=== PATIENT | male | born 1950 | race Caucasian/White ===

== ENCOUNTER 2019-02-17 08:29 | Day surgery (SDC) | payer MEDICARE, OTHER ==
[~2019-02-17 08:29] MED LIST: Lactated Ringers 1,000 ML IV SCH; Sodium Chloride 0.9% 10 ML Syringe FLUSH PRN
[2019-02-17] MEDS ORDERED: Propofol 200 MG/20 ML SDV ONE ×2 (09:56→11:06)
[2019-02-17] MEDS ORDERED: fentaNYL 100 MCG/2 ML SDV ONE (09:56)
--- NOTE | 2019-02-17 14:36 | OR ---
PRE-OPERATIVE DIAGNOSIS: Screening colonoscopy. This is the patient's first colonoscopy. He denies any family history of colon cancer or colon polyps. POST-OPERATIVE DIAGNOSES: 1. Very tortuous and redundant colon. I was only able to pass the colonoscope to the hepatic flexure area despite multiple maneuvers and the patient repositioning. 2. Four tiny polyps removed all using cold forceps. a. A 2 mm polyp at 75 cm. b. A 2 mm polyp at 60 cm. c. A 2 mm polyp at 25 cm. d. A 2 mm polyp at 15 cm. 3. Moderate sigmoid diverticulosis. 4. Moderately severe hemorrhoids, internal greater than external. PROCEDURE: Colonoscopy although only able to advance the colonoscope to the hepatic flexure area given very tortuous and redundant colon. SURGEON: Isaias Felipe M.D. ANESTHESIA: Monitored anesthesia care. BOWEL PREP: Good. DESCRIPTION OF PROCEDURE: Colin is a 69-year-old male who was brought to the endoscopy suite after discussing risks and benefits of the procedure. Informed consent was obtained for conscious sedation and colonoscopy with or without biopsy and/or polypectomy. We also discussed possibility of missed lesions. Pre-procedure exam was unremarkable. IV, oxygen, and monitors were placed. The patient was placed in the left lateral decubitus position. Sedation was administered and a digital rectal exam was performed and revealed some hemorrhoids as well as some increased anal tone. Colonoscope was passed into the rectum and slowly advanced to the hepatic flexure area. The patient had a very tortuous and redundant colon and required multiple scope maneuvers and patient positioning changes to even make it that far. Colonoscope was slowly withdrawn. Mucosa closely observed in a direct circumferential manner. The transverse colon was remarkable for 2 mm polyp at 75 cm and 2 mm polyp at 60 cm, both removed with cold forceps. The descending colon was unremarkable. The sigmoid colon was remarkable for moderate diverticulosis as well as 2 mm polyps at 25 cm and 15 cm, both removed with cold forceps. Retroflexion was performed. Rectal mucosa was remarkable for [id number] internal hemorrhoids. Scope was removed. The patient tolerated the procedure well. The patient was monitored until that baseline status. Discharge instructions were reviewed and the patient was discharged in good condition. COMPLICATIONS: None. TOTAL TIME: 46 minutes. ESTIMATED BLOOD LOSS: About 1 mL. RECOMMENDATIONS/FOLLOW-UP: We will await results of path report to determine ideal followup. Could consider obtaining a barium enema to view the right colon versus doing early scope followup with Gastroenterology depending on how pathology report returns. I will have the patient hold his aspirin for about 3 days to limit any chance of bleeding. I would like to kindly thank Gautam Zavala for this referral. DMB: 02/17/2019 12:06:46 MODL: 02/17/2019 14:25:44 /[id number]
== END 2019-02-17 13:25 | disposition home or self-care (01) ==
LOC: VM.SDS 08:29
PROVIDERS: ATTEND Family Medicine
DX: Z12.11 Encounter for screening for malignant neoplasm of colon (principal); D12.5 Benign neoplasm of sigmoid colon; D12.3 Benign neoplasm of transverse colon; K63.5 Polyp of colon; K57.30 Diverticulosis of large intestine without perforation or abscess without bleeding; K64.8 Other hemorrhoids; I10 Essential (primary) hypertension; E78.5 Hyperlipidemia, unspecified; H91.93 Unspecified hearing loss, bilateral; Z79.82 Long term (current) use of aspirin; Z79.1 Long term (current) use of non-steroidal anti-inflammatories (NSAID); Z00.00 Encounter for general adult medical examination without abnormal findings
CPT/HCPCS: 45380; 88305; J2704; J3010; J7120

== ENCOUNTER 2020-11-26 16:12 | Inpatient (IN) | payer MEDICARE, OTHER ==
[2020-11-27] MEDS ORDERED: Docusate Sodium 100 MG Cap PO PRN (16:17)
[2020-11-27] MEDS ORDERED: Melatonin 3 MG Tab PO PRN (16:35)
[2020-11-27] MEDS: Gabapentin 100 MG Cap PO SCH ×2 (16:47→19:39)
--- NOTE | 2020-11-27 16:49 | PCM.HP.2 ---
H&P History of Present Illness - General Date of Service: 11/27/20 Admit Problem/Dx: Admission Diagnosis/Problem Admission Diagnosis/Problem Fracture of femur - History of Present Illness Initial Comments - Free Text/Narative: Choco is a 70-year-old male with past medical history of hypertension and hyperlipidemia who is being admitted to [facility] for swing bed cares for ongoing therapies. Is originally admitted as a trauma at [facility] on 11/05/2020. He had fallen off of a trailer and had 2000 pound he will roll on top of him. He sustained bilateral pubic rami fractures, a right inferior and lateral acet abular fracture, a comminuted left intertrochanteric fracture, left sacral alar fracture, rib fractures of #5 through 10 on the right as well as #5 through 11 on the left, as well as peritoneal hematoma within his pelvis. Operative repair included orthopedic surgery repairing the left femur on 10/06/2021. He was seen by occupational as well as physical therapy and eventually was evaluated by [facility] and accepted to them for ongoing intensive therapy. He was discharged from [facility] on 11/12/2020 and transferred to rehab. He was discharged from rehab today and transferred here for ongoing care as prior to anticipated discharge home. He did have a CT scan completed today prior to discharge which inserted some well healing rib fractures and minimal atelectasis in the right lung base with no acute process noted. COVID completed yesterday was negative. Prior to hospitalization patient was on lisinopril 10 mg daily for his hypertension, atorvastatin 20 mg daily for hyperlipidemia, Viagra prn for erectile dysfunction. Bilateral Chest Pain Score (Numeric/FACES): 3 Left Upper Leg Pain Score (Numeric/FACES): 3 - Related Data Allergies/Adverse Reactions: Allergies Allergy/AdvReac Type Severity Reaction Status Date / Time No Known Allergies Allergy Verified 11/27/20 07:39 Home Medications: Home Meds Lisinopril 1 tab PO DAILY 02/15/19 [History] Multivitamin with Minerals [Multiple Vitamin] 1 tab PO DAILY 02/15/19 [History] atorvaSTATin [Lipitor] 1 tab PO BEDTIME 02/15/19 [History] Acetaminophen 1,000 mg PO TID 11/27/20 [History] Docusate Sodium 1 cap PO BID 11/27/20 [History] Enoxaparin [Lovenox] 30 mg SUBCUT BID 11/27/20 [History] Gabapentin [Neurontin] 2 cap PO TID 11/27/20 [History] Lidocaine 5% [Lidoderm 5%] 2 patch TOP DAILY 11/27/20 [History] Melatonin 6 mg PO BEDTIME PRN 11/27/20 [History] Sennosides/Docusate Sodium [Senna-Docusate Sodium Tablet] 2 tab PO DAILY 11/27/20 [History] oxyCODONE 5 mg PO Q4H PRN 11/27/20 [History] polyethylene glycoL 3350 [MiraLAX] 1 packet PO DAILY 11/27/20 [History] tiZANidine [Zanaflex] 2 mg PO DAILY 11/27/20 [History] Past Medical History HEENT History: Reports: Other (See Below) Other HEENT History: hearing loss Cardiovascular History: Reports: High Cholesterol, Hypertension Respiratory History: Reports: None Gastrointestinal History: Reports: None Genitourinary History: Reports: None Musculoskeletal History: Reports: Fracture, Other (See Below) Other Musculoskeletal History: Multiple trauma, left hip fx, pelvic fx, right ankle fx, impaired gait and mobility, impaired ADLs, pain Neurological History: Reports: None Psychiatric History: Reports: None Endocrine/Metabolic History: Reports: None Hematologic History: Reports: None Oncologic (Cancer) History: Reports: None Dermatologic History: Reports: None - Past Surgical History Head Surgeries/Procedures: Reports: None HEENT Surgical History: Reports: None Cardiovascular Surgical History: Reports: None Respiratory Surgical History: Reports: None GI Surgical History: Reports: None Male Surgical History: Reports: None Endocrine Surgical History: Reports: None Neurological Surgical History: Reports: None Musculoskeletal Surgical History: Reports: ORIF Oncologic Surgical History: Reports: None Dermatological Surgical History: Reports: None, Skin Biopsy H&P Review of Systems - Review of Systems: Review Of Systems: See Below General: Reports: No Symptoms HEENT: Reports: No Symptoms Pulmonary: Reports: No Symptoms Cardiovascular: Reports: No Symptoms Gastrointestinal: Reports: No Symptoms Genitourinary: Reports: No Symptoms Musculoskeletal: Reports: Other (buttocks, left hip, and right ankle pain) Psychiatric: Reports: No Symptoms Neurological: Reports: No Symptoms Hematologic/Lymphatic: Reports: No Symptoms Immunologic: Reports: No Symptoms Exam - Exam Exam: See Below - Vital Signs Vital Signs: Last Vital Signs Temp 96.9 F 11/27/20 14:41 Pulse 87 11/27/20 14:41 Resp 16 11/27/20 14:41 BP 136/77 11/27/20 14:41 Pulse Ox 95 11/27/20 14:41 Weight: 168 lb 6.4 oz - Exam General: Alert, Oriented HEENT: Conjunctiva Clear, Mucosa Moist & [place] Neck: Supple, Trachea Midline Lungs: Normal Respiratory Effort, Rales (faint, right lower lung) Cardiovascular: Regular Rate, Regular Rhythm GI/Abdominal Exam: Normal Bowel Sounds, Soft, Non-Tender Extremities: Normal Inspection, Other (boot on right foot) Skin: Warm, Dry Neuro Extensive - Mental Status: Alert, Oriented x3, Normal Mood/Affect, Memory Intact Psychiatric: Alert, Normal Affect, Normal Mood Sepsis Event Note - Evaluation Sepsis Screening Result: No Definite Risk - Focused Exam Vital Signs: Vital Signs Temp Pulse Resp BP Pulse Ox 11/27/20 14:41 96.9 F 87 16 136/77 95 - Problem List (1) Closed right hip fracture SNOMED Code(s): 544423350 ICD Code: S72.001A - FRACTURE OF UNSP PART OF NECK OF RIGHT FEMUR, INIT Status: Acute Current Visit: Yes (2) Pubic ramus fracture SNOMED Code(s): 29298246 ICD Code: S32.599A - OTH FRACTURE OF UNSP PUBIS, INIT ENCNTR FOR CLOSED FRACTURE Status: Acute Current Visit: Yes (3) Physical deconditioning SNOMED Code(s): 83191588082870 ICD Code: R53.81 - OTHER MALAISE Status: Acute Current Visit: Yes (4) HTN (hypertension) SNOMED Code(s): 29214856 ICD Code: I10 - ESSENTIAL (PRIMARY) HYPERTENSION Status: Acute Current Visit: Yes (5) HLD (hyperlipidemia) SNOMED Code(s): 42605053 ICD Code: E78.5 - HYPERLIPIDEMIA, UNSPECIFIED Status: Acute Current Visit: Yes Problem List Initiated/Reviewed/Updated: Yes Orders Last 24hrs: Active Orders 24 hr Category Date Time Status Admission Status [Patient Status] [ADT] Routine ADT 11/27/20 11:23 Active Incentive Spirometry [RT Incentive Spirometry] [RC] Care 11/27/20 16:39 Ordered Q8HR Oxygen Therapy [RC] PRN Care 11/27/20 16:07 Active Up With Assistance [RC] ASDIRECTED Care 11/27/20 16:07 Active VTE/DVT Education [RC] PER UNIT ROUTINE Care 11/27/20 16:07 Active Vital Signs [RC] Q8H Care 11/27/20 16:07 Active OT Evaluation and Treatment [CONS] Routine Cons 11/27/20 16:39 Ordered PT Evaluation and Treatment [CONS] Routine Cons 11/27/20 16:39 Ordered Regular Diet [DIET] Diet 11/27/20 Dinner Active CBC W/O DIFF,HEMOGRAM [HEME] Q3D Lab 11/28/20 07:00 Ordered CBC W/O DIFF,HEMOGRAM [HEME] Q3D Lab 12/01/20 07:00 Ordered CBC W/O DIFF,HEMOGRAM [HEME] Q3D Lab 12/04/20 07:00 Ordered CBC W/O DIFF,HEMOGRAM [HEME] Q3D Lab 12/07/20 07:00 Ordered CBC W/O DIFF,HEMOGRAM [HEME] Q3D Lab 12/10/20 07:00 Ordered CBC W/O DIFF,HEMOGRAM [HEME] Q3D Lab 12/13/20 07:00 Ordered CBC W/O DIFF,HEMOGRAM [HEME] Q3D Lab 12/16/20 07:00 Ordered Acetaminophen [Tylenol Extra Strength] Med 11/27/20 20:00 Ordered 1,000 mg PO TID Docusate Sodium [Colace] Med 11/27/20 20:00 Ordered 1 cap PO BID Enoxaparin [Lovenox] Med 11/27/20 16:15 Pending 30 mg SUBCUT Q12H Gabapentin [Neurontin] Med 11/27/20 16:30 Active 100 mg PO TID Lidocaine 5% Med 11/28/20 08:00 Ordered 2 patch TOP DAILY Melatonin Med 11/27/20 16:35 Ordered 6 mg PO BEDTIME PRN Multivitamins w-Iron/Ca/FA/Min [Thera M Plus] Med 11/28/20 08:00 Active 1 tab PO DAILY atorvaSTATin [Lipitor] Med 11/27/20 20:00 Active 20 mg PO BEDTIME lisinopriL [Prinivil] Med 11/28/20 08:00 Active 10 mg PO DAILY oxyCODONE Med 11/27/20 16:18 Active 5 mg PO Q6H PRN polyethylene glycoL 3350 [MiraLAX] Med 11/28/20 08:00 Ordered 1 packet PO DAILY tiZANidine [Zanaflex] Med 11/27/20 16:16 Active 2 mg PO Q6H PRN Resuscitation Status Routine Resus Stat 11/27/20 16:07 Ordered Medication Orders Acetaminophen (Tylenol Extra Strength) 1,000 mg PO TID [facility] Atorvastatin Calcium (Lipitor) 20 mg PO BEDTIME [facility] Docusate Sodium (Colace) 100 mg PO BID [facility] Enoxaparin Sodium (Lovenox) 30 mg SUBCUT Q12H [facility] Stop: 12/04/20 08:01 Gabapentin (Neurontin) 100 mg PO TID [facility] Lisinopril (Prinivil) 10 mg PO DAILY [facility] Melatonin (Melatonin) 6 mg PO BEDTIME PRN PRN Reason: Insomnia Multivitamins/Minerals (Thera M Plus) 1 tab PO DAILY [facility] Non-Formulary Medication (Lidocaine 5%) 2 patch TOP DAILY [facility] Oxycodone HCl (Oxycodone) 5 mg PO Q6H PRN PRN Reason: Pain Polyethylene Glycol (Miralax) 17 gm PO DAILY [facility] Tizanidine HCl (Zanaflex) 2 mg PO Q6H PRN PRN Reason: Muscle Spasm Assessment/Plan Comment:: Trauma: s/p hip fracture, bilateral pubic ramus fractures, inferior and lateral acetabular fractures, sacral alar fracture, rib fractures bilaterally Right ankle pain, ? fracture -Patient has been discharged from intensive inpatient rehab -CT scan (11/27) demonstrating some RLL atelectasis, some RLL rales today Plan: -PT/OT for continued rehab -Pain control: gabapentin 100mg TID, Tylenol 1000mg TID, oxycodone 5mg q6hr prn for mod-sev pain, zanaflex q6hr prn -DVT: continue lovenox 30mg SQ BID through 12/04/20 (post-op per ortho) -Incentive spirometry TID -Will plan to repeat xray right ankle 6 weeks from date of injury (December 17) Chronic: HTN- continue home Lisinopril HLD- continue home atorvastatin Diet: Regular DVT: lovenox, as above CODE: FULL Disposition: Patient is admitted swing bed for ongoing therapies through physical and occupational therapy prior to his expected return home. - Mortality Measure Prognosis:: Good
[2020-11-27] MEDS ORDERED: Acetaminophen 325 MG Tab PO SCH (18:00)
[2020-11-27] MEDS: oxyCODONE 5 MG Tab PO PRN (18:51)
[2020-11-27] MEDS: Enoxaparin 30 MG/0.3 ML Syringe SUBCUT SCH (19:38)
[2020-11-27] MEDS: atorvaSTATin 10 MG Tab PO SCH (19:39)
[2020-11-27] MEDS: Docusate Sodium 100 MG Cap PO SCH (19:39)
[2020-11-27] MEDS: Acetaminophen 500 MG Tab PO SCH (19:42)
[2020-11-27] MEDS: REMOVE LIDOCAINE TRDERM SCH (19:45)
[2020-11-27] MEDS ORDERED: Enoxaparin 100 MG/1 ML Syringe SUBCUT SCH (20:00)
[2020-11-28] MEDS: oxyCODONE 5 MG Tab PO PRN ×3 (01:13→12:02)
[2020-11-28] MEDS: Docusate Sodium 100 MG Cap PO SCH ×2 (07:43→19:41)
[2020-11-28] MEDS: Multivitamins with Iron/Calcium/Folic Acid/Minerals Tab PO SCH (07:44)
[2020-11-28] MEDS: Acetaminophen 500 MG Tab PO SCH ×3 (07:44→19:41)
[2020-11-28] MEDS: Gabapentin 100 MG Cap PO SCH ×3 (07:45→19:41)
[2020-11-28] MEDS: Polyethylene Glycol 3350 Powder 17 GM Packet PO SCH (07:45)
[2020-11-28] MEDS: Lisinopril 10 MG Tab PO SCH (07:45)
[2020-11-28] MEDS: Enoxaparin 30 MG/0.3 ML Syringe SUBCUT SCH ×2 (07:46→19:43)
[2020-11-28] MEDS: Lidocaine 4% 1 each Patch TOP SCH (07:52)
[2020-11-28] MEDS ORDERED: TIZANIDINE 2 MG PO SCH (08:00)
[2020-11-28] MEDS ORDERED: Polyethylene Glycol 3350 Powder 17 GM Packet PO SCH (08:00)
[2020-11-28] MEDS ORDERED: Aspirin 81 MG Tab.Chew PO SCH (08:00)
[2020-11-28] MEDS: atorvaSTATin 10 MG Tab PO SCH (19:41)
[2020-11-28] MEDS: REMOVE LIDOCAINE TRDERM SCH (19:48)
[2020-11-29] MEDS: oxyCODONE 5 MG Tab PO PRN ×2 (02:31→10:28)
[2020-11-29] MEDS: Acetaminophen 500 MG Tab PO SCH ×3 (07:41→19:47)
[2020-11-29] MEDS: Gabapentin 100 MG Cap PO SCH ×3 (07:41→19:46)
[2020-11-29] MEDS: Polyethylene Glycol 3350 Powder 17 GM Packet PO SCH (07:41)
[2020-11-29] MEDS: Docusate Sodium 100 MG Cap PO SCH ×2 (07:42→19:46)
[2020-11-29] MEDS: Multivitamins with Iron/Calcium/Folic Acid/Minerals Tab PO SCH (07:42)
[2020-11-29] MEDS: Lisinopril 10 MG Tab PO SCH (07:42)
[2020-11-29] MEDS: Enoxaparin 30 MG/0.3 ML Syringe SUBCUT SCH ×2 (07:42→19:47)
[2020-11-29] MEDS: Lidocaine 4% 1 each Patch TOP SCH (07:43)
[2020-11-29] MEDS: atorvaSTATin 10 MG Tab PO SCH (19:46)
[2020-11-29] MEDS: REMOVE LIDOCAINE TRDERM SCH (19:49)
[2020-11-30] MEDS: oxyCODONE 5 MG Tab PO PRN (02:08)
[2020-11-30] MEDS ORDERED: Polyethylene Glycol 3350 Powder 17 GM Packet PO PRN (02:45)
[2020-11-30] MEDS: Enoxaparin 30 MG/0.3 ML Syringe SUBCUT SCH ×2 (08:46→19:52)
[2020-11-30] MEDS: Lidocaine 4% 1 each Patch TOP SCH (08:46)
[2020-11-30] MEDS: Acetaminophen 500 MG Tab PO SCH ×3 (08:47→19:51)
[2020-11-30] MEDS: Docusate Sodium 100 MG Cap PO SCH ×2 (08:48→19:51)
[2020-11-30] MEDS: Gabapentin 100 MG Cap PO SCH ×3 (08:48→19:51)
[2020-11-30] MEDS: Multivitamins with Iron/Calcium/Folic Acid/Minerals Tab PO SCH (08:48)
[2020-11-30] MEDS: Lisinopril 10 MG Tab PO SCH (08:48)
[2020-11-30] MEDS: atorvaSTATin 10 MG Tab PO SCH (19:50)
[2020-11-30] MEDS: REMOVE LIDOCAINE TRDERM SCH (19:52)
[2020-12-01] MEDS: oxyCODONE 5 MG Tab PO PRN (02:58)
[2020-12-01] MEDS: Lidocaine 4% 1 each Patch TOP SCH (08:46)
[2020-12-01] MEDS: Gabapentin 100 MG Cap PO SCH ×3 (08:47→19:39)
[2020-12-01] MEDS: Acetaminophen 500 MG Tab PO SCH ×3 (08:47→19:39)
[2020-12-01] MEDS: Docusate Sodium 100 MG Cap PO SCH ×2 (08:47→19:39)
[2020-12-01] MEDS: Multivitamins with Iron/Calcium/Folic Acid/Minerals Tab PO SCH (08:47)
[2020-12-01] MEDS: Enoxaparin 30 MG/0.3 ML Syringe SUBCUT SCH ×2 (08:47→19:39)
[2020-12-01] MEDS: Lisinopril 10 MG Tab PO SCH (08:48)
[2020-12-01] MEDS: atorvaSTATin 10 MG Tab PO SCH (19:39)
[2020-12-01] MEDS: REMOVE LIDOCAINE TRDERM SCH (19:40)
[2020-12-02] MEDS: oxyCODONE 5 MG Tab PO PRN (03:11)
[2020-12-02] MEDS: Lidocaine 4% 1 each Patch TOP SCH (08:30)
[2020-12-02] MEDS: Docusate Sodium 100 MG Cap PO SCH ×2 (08:31→19:53)
[2020-12-02] MEDS: Lisinopril 10 MG Tab PO SCH (08:31)
[2020-12-02] MEDS: Gabapentin 100 MG Cap PO SCH ×3 (08:31→19:54)
[2020-12-02] MEDS: Enoxaparin 30 MG/0.3 ML Syringe SUBCUT SCH ×2 (08:31→19:53)
[2020-12-02] MEDS: Acetaminophen 500 MG Tab PO SCH ×3 (08:33→19:54)
[2020-12-02] MEDS: Multivitamins with Iron/Calcium/Folic Acid/Minerals Tab PO SCH (08:33)
[2020-12-02] MEDS: atorvaSTATin 10 MG Tab PO SCH (19:54)
[2020-12-02] MEDS: REMOVE LIDOCAINE TRDERM SCH (19:55)
[2020-12-03] MEDS: Docusate Sodium 100 MG Cap PO SCH ×2 (09:03→20:19)
[2020-12-03] MEDS: Enoxaparin 30 MG/0.3 ML Syringe SUBCUT SCH ×2 (09:03→20:21)
[2020-12-03] MEDS: Acetaminophen 500 MG Tab PO SCH ×3 (09:04→20:19)
[2020-12-03] MEDS: oxyCODONE 5 MG Tab PO PRN (09:04)
[2020-12-03] MEDS: Multivitamins with Iron/Calcium/Folic Acid/Minerals Tab PO SCH (09:05)
[2020-12-03] MEDS: Lisinopril 10 MG Tab PO SCH (09:05)
[2020-12-03] MEDS: Gabapentin 100 MG Cap PO SCH ×3 (09:05→20:19)
[2020-12-03] MEDS: Lidocaine 4% 1 each Patch TOP SCH (09:06)
[2020-12-03] MEDS: atorvaSTATin 10 MG Tab PO SCH (20:18)
[2020-12-03] MEDS: REMOVE LIDOCAINE TRDERM SCH (20:21)
[2020-12-04] MEDS: Enoxaparin 30 MG/0.3 ML Syringe SUBCUT SCH (08:11)
[2020-12-04] MEDS: Docusate Sodium 100 MG Cap PO SCH ×2 (08:11→20:11)
[2020-12-04] MEDS: Lidocaine 4% 1 each Patch TOP SCH (08:11)
[2020-12-04] MEDS: Lisinopril 10 MG Tab PO SCH (08:11)
[2020-12-04] MEDS: Multivitamins with Iron/Calcium/Folic Acid/Minerals Tab PO SCH (08:11)
[2020-12-04] MEDS: oxyCODONE 5 MG Tab PO PRN (08:12)
[2020-12-04] MEDS: Gabapentin 100 MG Cap PO SCH ×3 (08:12→20:10)
[2020-12-04] MEDS: Acetaminophen 500 MG Tab PO SCH ×3 (08:12→20:10)
[2020-12-04] MEDS: atorvaSTATin 10 MG Tab PO SCH (20:11)
[2020-12-04] MEDS: REMOVE LIDOCAINE TRDERM SCH (20:15)
[2020-12-05] MEDS: Acetaminophen 500 MG Tab PO SCH ×3 (08:02→19:41)
[2020-12-05] MEDS: Gabapentin 100 MG Cap PO SCH ×3 (08:02→19:42)
[2020-12-05] MEDS: Lidocaine 4% 1 each Patch TOP SCH (08:02)
[2020-12-05] MEDS: Lisinopril 10 MG Tab PO SCH (08:02)
[2020-12-05] MEDS: oxyCODONE 5 MG Tab PO PRN (08:03)
[2020-12-05] MEDS: Docusate Sodium 100 MG Cap PO SCH ×2 (08:03→19:42)
[2020-12-05] MEDS: Multivitamins with Iron/Calcium/Folic Acid/Minerals Tab PO SCH (08:03)
[2020-12-05] MEDS: atorvaSTATin 10 MG Tab PO SCH (19:42)
[2020-12-05] MEDS: REMOVE LIDOCAINE TRDERM SCH (19:43)
[2020-12-06] MEDS: Docusate Sodium 100 MG Cap PO SCH ×2 (08:22→19:49)
[2020-12-06] MEDS: Multivitamins with Iron/Calcium/Folic Acid/Minerals Tab PO SCH (08:22)
[2020-12-06] MEDS: Acetaminophen 500 MG Tab PO SCH ×3 (08:22→19:49)
[2020-12-06] MEDS: Gabapentin 100 MG Cap PO SCH ×3 (08:22→19:49)
[2020-12-06] MEDS: Lidocaine 4% 1 each Patch TOP SCH (08:22)
[2020-12-06] MEDS: Lisinopril 10 MG Tab PO SCH (08:23)
[2020-12-06] MEDS: atorvaSTATin 10 MG Tab PO SCH (19:49)
[2020-12-06] MEDS: REMOVE LIDOCAINE TRDERM SCH (19:50)
[2020-12-07] MEDS: Lidocaine 4% 1 each Patch TOP SCH (07:31)
[2020-12-07] MEDS: Multivitamins with Iron/Calcium/Folic Acid/Minerals Tab PO SCH (07:32)
[2020-12-07] MEDS: Lisinopril 10 MG Tab PO SCH (07:32)
[2020-12-07] MEDS: Gabapentin 100 MG Cap PO SCH ×3 (07:32→19:23)
[2020-12-07] MEDS: Acetaminophen 500 MG Tab PO SCH ×3 (07:32→19:24)
[2020-12-07] MEDS: Docusate Sodium 100 MG Cap PO SCH ×2 (07:32→19:23)
[2020-12-07] MEDS: atorvaSTATin 10 MG Tab PO SCH (19:23)
[2020-12-07] MEDS: REMOVE LIDOCAINE TRDERM SCH (19:24)
[2020-12-08] MEDS: Docusate Sodium 100 MG Cap PO SCH ×2 (07:56→19:45)
[2020-12-08] MEDS: Acetaminophen 500 MG Tab PO SCH ×3 (07:56→19:45)
[2020-12-08] MEDS: Multivitamins with Iron/Calcium/Folic Acid/Minerals Tab PO SCH (07:56)
[2020-12-08] MEDS: Gabapentin 100 MG Cap PO SCH ×3 (07:56→19:45)
[2020-12-08] MEDS: Lisinopril 10 MG Tab PO SCH (07:56)
[2020-12-08] MEDS: Lidocaine 4% 1 each Patch TOP SCH (07:56)
[2020-12-08] MEDS: atorvaSTATin 10 MG Tab PO SCH (19:45)
[2020-12-08] MEDS: REMOVE LIDOCAINE TRDERM SCH (22:11)
[2020-12-09] MEDS: Lisinopril 10 MG Tab PO SCH (08:01)
[2020-12-09] MEDS: Multivitamins with Iron/Calcium/Folic Acid/Minerals Tab PO SCH (08:01)
[2020-12-09] MEDS: Gabapentin 100 MG Cap PO SCH ×3 (08:01→19:37)
[2020-12-09] MEDS: Lidocaine 4% 1 each Patch TOP SCH (08:01)
[2020-12-09] MEDS: Docusate Sodium 100 MG Cap PO SCH ×2 (08:01→19:37)
[2020-12-09] MEDS: Acetaminophen 500 MG Tab PO SCH ×3 (08:01→19:37)
[2020-12-09] MEDS: atorvaSTATin 10 MG Tab PO SCH (19:37)
[2020-12-09] MEDS: REMOVE LIDOCAINE TRDERM SCH (19:39)
[2020-12-10] MEDS: Lidocaine 4% 1 each Patch TOP SCH (08:31)
[2020-12-10] MEDS: Multivitamins with Iron/Calcium/Folic Acid/Minerals Tab PO SCH (08:31)
[2020-12-10] MEDS: Lisinopril 10 MG Tab PO SCH (08:31)
[2020-12-10] MEDS: Acetaminophen 500 MG Tab PO SCH ×3 (08:31→19:36)
[2020-12-10] MEDS: Docusate Sodium 100 MG Cap PO SCH ×2 (08:32→19:37)
[2020-12-10] MEDS: Gabapentin 100 MG Cap PO SCH ×3 (08:32→19:37)
[2020-12-10 09:33] LABS: CHLORIDE,CL 102 mmol/L (98-107); SODIUM,NA 139 mmol/L (136-145)
[2020-12-10 09:35] LABS: ANION GAP 13.3 mmol/L (5-15)
[2020-12-10] MEDS: REMOVE LIDOCAINE TRDERM SCH (19:37)
[2020-12-10] MEDS: atorvaSTATin 10 MG Tab PO SCH (19:37)
[2020-12-10] MEDS: tiZANidine 4 MG Tab PO PRN (19:39)
[2020-12-11] MEDS: Lidocaine 4% 1 each Patch TOP SCH (08:06)
[2020-12-11] MEDS: Gabapentin 100 MG Cap PO SCH ×3 (08:07→19:17)
[2020-12-11] MEDS: Lisinopril 10 MG Tab PO SCH (08:07)
[2020-12-11] MEDS: Docusate Sodium 100 MG Cap PO SCH ×2 (08:07→19:17)
[2020-12-11] MEDS: Acetaminophen 500 MG Tab PO SCH ×3 (08:07→19:17)
[2020-12-11] MEDS: Multivitamins with Iron/Calcium/Folic Acid/Minerals Tab PO SCH (08:07)
[2020-12-11] MEDS: atorvaSTATin 10 MG Tab PO SCH (19:17)
[2020-12-11] MEDS: tiZANidine 4 MG Tab PO PRN (19:18)
[2020-12-11] MEDS: REMOVE LIDOCAINE TRDERM SCH (19:23)
[2020-12-12] MEDS: oxyCODONE 5 MG Tab PO PRN (03:12)
[2020-12-12] MEDS: Docusate Sodium 100 MG Cap PO SCH ×2 (08:08→19:34)
[2020-12-12] MEDS: Acetaminophen 500 MG Tab PO SCH ×3 (08:08→19:35)
[2020-12-12] MEDS: Lidocaine 4% 1 each Patch TOP SCH (08:08)
[2020-12-12] MEDS: Gabapentin 100 MG Cap PO SCH ×3 (08:08→19:34)
[2020-12-12] MEDS: Multivitamins with Iron/Calcium/Folic Acid/Minerals Tab PO SCH (08:08)
[2020-12-12] MEDS: Lisinopril 10 MG Tab PO SCH (08:09)
[2020-12-12] MEDS: tiZANidine 4 MG Tab PO PRN (19:34)
[2020-12-12] MEDS: atorvaSTATin 10 MG Tab PO SCH (19:34)
[2020-12-12] MEDS: REMOVE LIDOCAINE TRDERM SCH (19:35)
[2020-12-13] MEDS: Lidocaine 4% 1 each Patch TOP SCH (08:32)
[2020-12-13] MEDS: Acetaminophen 500 MG Tab PO SCH ×3 (08:33→19:44)
[2020-12-13] MEDS: Multivitamins with Iron/Calcium/Folic Acid/Minerals Tab PO SCH (08:33)
[2020-12-13] MEDS: Gabapentin 100 MG Cap PO SCH ×3 (08:33→19:45)
[2020-12-13] MEDS: Lisinopril 10 MG Tab PO SCH (08:33)
[2020-12-13] MEDS: Docusate Sodium 100 MG Cap PO SCH ×2 (08:33→19:45)
[2020-12-13] MEDS: atorvaSTATin 10 MG Tab PO SCH (19:45)
[2020-12-13] MEDS: REMOVE LIDOCAINE TRDERM SCH (21:38)
[2020-12-14 06:06] VITALS: BP 133/72; PULSE 62
[2020-12-14] MEDS: Multivitamins with Iron/Calcium/Folic Acid/Minerals Tab PO SCH (08:18)
[2020-12-14] MEDS: Acetaminophen 500 MG Tab PO SCH ×2 (08:18→12:56)
[2020-12-14] MEDS: Docusate Sodium 100 MG Cap PO SCH (08:18)
[2020-12-14] MEDS: Gabapentin 100 MG Cap PO SCH ×2 (08:18→12:56)
[2020-12-14] MEDS: Lisinopril 10 MG Tab PO SCH (08:18)
[2020-12-14] MEDS: Lidocaine 4% 1 each Patch TOP SCH (08:23)
--- NOTE | 2020-12-14 08:47 | PCM.DCSUM1 ---
Discharge Summary - Hospital Course Free Text/Narrative:: Colin Garcia is a 70-year-old male with past medical history of hypertension and hyperlipidemia who was originally admitted as a trauma at on 11/05/2020. He had fallen off of a trailer and had 2000 pound haybale roll on top of him. He sustained bilateral pubic rami fractures, a right inferior and lateral acetabular fracture, a comminuted left intertrochanteric fracture, left sacral alar fracture, rib fractures of #5 through 10 on the right as well as #5 through 11 on the left, as well as peritoneal hematoma within his pelvis. Operative repair included orthopedic surgery repairing the left femur on 10/06/2021. He was seen by occupational as well as physical therapy and eventually was evaluated by rehab and accepted to them for ongoing intensive therapy. He was discharged from [facility] on 11/12/2020 and transferred to rehab. He was discharged from rehab on 11/27/20 for swing bed for ongoing cares at [facility]. He has progressed well through his therapies and is deemed ready for discharge home per PT and OT services. His hospital course has otherwise been uncomplicated. He has been able to self-wean down on the pain control medications; using these on average 1 time every 2-3 days (mostly at night). He will will be discharged on his previous home medications. We will give him a handful of Zanaflex and [place]. We will decreased his Neurontin to 100mg BID (From 100mg TID in the hospital). He will be discharged with [facility] services for continued PT/OT. He will follow-up with his PCP in 1-2 weeks time for a hospital discharge follow-up. - Discharge Data Discharge Date: 12/14/20 Discharge Disposition: Home, W Home Health Agency 06 Condition: Good - Referral to Home Health Date of Face to Face Encounter: 12/14/20 Reason for Homebound Status: Use of assistive device, requires the aid of others to leave the home Primary Care Physician: Gautam Zavala PA-C Skilled Need: PT, OT - Discharge Diagnosis/Problem(s) (1) Closed right hip fracture SNOMED Code(s): 435418179 ICD Code: S72.001A - FRACTURE OF UNSP PART OF NECK OF RIGHT FEMUR, INIT Status: Acute Current Visit: Yes (2) Pubic ramus fracture SNOMED Code(s): 72331921 ICD Code: S32.599A - OTH FRACTURE OF UNSP PUBIS, INIT ENCNTR FOR CLOSED FRACTURE Status: Acute Current Visit: Yes (3) Physical deconditioning SNOMED Code(s): 38859357263131 ICD Code: R53.81 - OTHER MALAISE Status: Acute Current Visit: Yes (4) HTN (hypertension) SNOMED Code(s): 96364789 ICD Code: I10 - ESSENTIAL (PRIMARY) HYPERTENSION Status: Acute Current Visit: Yes (5) HLD (hyperlipidemia) SNOMED Code(s): 04187295 ICD Code: E78.5 - HYPERLIPIDEMIA, UNSPECIFIED Status: Acute Current Visit: Yes - Patient Summary/Data Consults: Consultations 11/27/20 16:39 OT Evaluation and Treatment [CONS] Routine PT Evaluation and Treatment [CONS] Routine - Patient Instructions Diet: Usual Diet as Tolerated Activity: As Tolerated Driving: Do Not Drive - Discharge Plan *PRESCRIPTION DRUG MONITORING PROGRAM REVIEWED*: Not Applicable *COPY OF PRESCRIPTION DRUG MONITORING REPORT IN PATIENT MAHESH: Not Applicable Home Medications: Home Meds Lisinopril 10 mg PO DAILY 02/15/19 [History] Multivitamin with Minerals [Multiple Vitamin] 1 tab PO DAILY@1900 02/15/19 [History] atorvaSTATin [Lipitor] 20 mg PO BEDTIME 02/15/19 [History] Acetaminophen 1,000 mg PO TID 11/27/20 [History] Docusate Sodium 100 mg PO BID 11/27/20 [History] Lidocaine 5% [Lidoderm 5%] 2 patch TOP DAILY 11/27/20 [History] Melatonin 6 mg PO BEDTIME PRN 11/27/20 [History] polyethylene glycoL 3350 [MiraLAX] 17 gram PO DAILY 11/27/20 [History] tiZANidine [Zanaflex] 2 mg PO DAILY 11/27/20 [History] Gabapentin [Neurontin] 100 mg PO BID cap 12/14/20 [Rx] Patient Handouts: Gabapentin capsules or tablets, Oxycodone tablets or capsules - Discharge Summary/Plan Comment DC Time >30 min.: No Discharge Summary/Plan Comment: Patient discharging home with services for PT/OT Should have follow-up with PCP in 1-2 weeks Resume all home meds: lisinopril, statin, MV New meds: gabapentin 100mg BID, lidocaine patch as needed/daily, prn flexeril and norco (Rx sent through [facility]) Face to Face Documentation Encounter Date of Encounter: 12/14/20 Patients Name: Colin Garcia Date of : [birth year] I certify that Colin is under my care and that I, or a nurse practitioner or physicians secretary administrative assistant, had a face to face encounter that meets the physician wiwy-uh-[id number] requirements on . (This date must match the discharge summary progress note/clinic visit documentation supporting this information.) The encounter with the patient was in whole or in part for the following medical condition, which is the primary reason for home health care: Physical therapy for strengthening, balance, and gait training, as well as OT for ADLs. My clinical findings support the need for the services because of inability to safely get to an outpatient facility for therapy due to fall risk, lack of muscle coordination and tone, balance issues, and weakness. Further, I certify that my clinical findings support that this patient is homebound (i.e. absences from home require considerable and taxing effort, or are for medical reasons, or for hindu services, or infrequent or of short duration when for other reasons) because the patient is unable to safely ambulate distances less than 20 feet, patient requires standby assist due to loss of balance, and patient requires frequent rest periods due to weakness and loss of endurance, patient requires use of assistive device and/or use of grant/furniture to ambulate (high fall risk) and patient requires assistance of another person to leave the home. Certification: For Home Health Services I certify that Colin meets the homebound requirements for the payer source and has a need for intermittent usp, physician, and/or speech or occupational therapy services in the home for the diagnosis currently outlined in the initial plan of care. These services will continue to be monitored by Gautam JONES. This physician will periodically review and update the plan of care as required. My signature indicates that this supplemental documentation has been incorporated in the patients medical record. Lou Menezes MD - Patient Data Vitals - Most Recent: Last Vital Signs Temp 98.4 F 12/14/20 06:00 Pulse 62 12/14/20 06:00 Resp 18 12/14/20 06:00 BP 133/72 12/14/20 08:18 Pulse Ox 95 12/14/20 06:00 Weight - Most Recent: 168 lb 6.4 oz I&O - Last 24 hours: Intake & Output 12/13/20 12/14/20 12/14/20 22:59 06:59 14:59 Intake Total 240 400 Output Total 1500 Balance 240 -1100 Med Orders - Current: Current Medications Acetaminophen (Tylenol Extra Strength) 1,000 mg PO TID [facility] Last Admin: 12/14/20 08:18 Dose: 1,000 mg Documented by: Atorvastatin Calcium (Lipitor) 20 mg PO BEDTIME [facility] Last Admin: 12/13/20 19:45 Dose: 20 mg Documented by: Docusate Sodium (Colace) 100 mg PO BID [facility] Last Admin: 12/14/20 08:18 Dose: 100 mg Documented by: Gabapentin (Neurontin) 100 mg PO TID [facility] Last Admin: 12/14/20 08:18 Dose: 100 mg Documented by: Lidocaine (Aspercreme 4%) 2 each TOP DAILY [facility] Last Admin: 12/14/20 08:23 Dose: 2 each Documented by: Lisinopril (Prinivil) 10 mg PO DAILY [facility] Last Admin: 12/14/20 08:18 Dose: 10 mg Documented by: Melatonin (Melatonin) 6 mg PO BEDTIME PRN PRN Reason: Insomnia Miscellaneous Information (Remove Patch) 1 ea TRDERM BEDTIME [facility] Last Admin: 12/13/20 21:38 Dose: Not Given Documented by: Multivitamins/Minerals (Thera M Plus) 1 tab PO DAILY [facility] Last Admin: 12/14/20 08:18 Dose: 1 tab Documented by: Oxycodone HCl (Oxycodone) 5 mg PO Q6H PRN PRN Reason: Pain Last Admin: 12/12/20 03:12 Dose: 5 mg Documented by: Polyethylene Glycol (Miralax) 17 gm PO DAILY PRN PRN Reason: Constipation Tizanidine HCl (Zanaflex) 2 mg PO Q6H PRN PRN Reason: Muscle Spasm Last Admin: 12/12/20 19:34 Dose: 2 mg Documented by: Discontinued Medications Acetaminophen (Tylenol) 650 mg PO Q6H [facility] Aspirin (Aspirin) 81 mg PO DAILY [facility] Docusate Sodium (Colace) 100 mg PO BID PRN PRN Reason: Constipation Enoxaparin Sodium (Lovenox) 30 mg SUBCUT Q12H [facility] Stop: 12/04/20 08:01 Last Admin: 12/04/20 08:11 Dose: 30 mg Documented by: Enoxaparin Sodium (Lovenox) 30 mg SUBCUT BID [facility] Stop: 12/04/20 23:59 Non-Formulary Medication (Tizanidine [Zanaflex]) 2 mg PO DAILY [facility] Polyethylene Glycol (Miralax) 17 gm PO DAILY [facility] Polyethylene Glycol (Miralax) 17 gm PO DAILY [facility] Last Admin: 11/29/20 07:41 Dose: 17 gm Documented by: - Exam General: Reports: Alert, Oriented HEENT: Reports: Pupils Equal, EOMI, Mucous Membr. Moist/[place] Neck: Reports: Supple Lungs: Reports: Clear to Auscultation, Normal Respiratory Effort Cardiovascular: Reports: Regular Rate, Regular Rhythm GI/Abdominal Exam: Normal Bowel Sounds, Soft, Non-Tender Extremities: Normal Inspection, Non-Tender, No Pedal Edema Skin: Reports: Warm, Dry, Intact Psy/Mental Status: Reports: Alert, Normal Affect, Normal Mood
== END 2020-12-14 13:55 | disposition home health service (06) | DRG 561 ==
LOC: VM.MS 11-27 14:27
PROVIDERS: ADMIT Family Medicine; ATTEND Family Medicine
DX: S32.599D Other specified fracture of unspecified pubis, subsequent encounter for fracture with routine healing (principal); S72.001D Fracture of unspecified part of neck of right femur, subsequent encounter for closed fracture with routine healing; S32.592D Other specified fracture of left pubis, subsequent encounter for fracture with routine healing; S32.591D Other specified fracture of right pubis, subsequent encounter for fracture with routine healing; S32.49 Other specified fracture of acetabulum; S32.19XD Other fracture of sacrum, subsequent encounter for fracture with routine healing; S32.491D Other specified fracture of right acetabulum, subsequent encounter for fracture with routine healing; S72.142D Displaced intertrochanteric fracture of left femur, subsequent encounter for closed fracture with routine healing; S22.43XD Multiple fractures of ribs, bilateral, subsequent encounter for fracture with routine healing; R53.81 Other malaise; I10 Essential (primary) hypertension; E78.5 Hyperlipidemia, unspecified; N52.9 Male erectile dysfunction, unspecified; E78.00 Pure hypercholesterolemia, unspecified; H91.90 Unspecified hearing loss, unspecified ear; M25.571 Pain in right ankle and joints of right foot; Z79.899 Other long term (current) drug therapy
CPT/HCPCS: 36415; 80048; 82728; 83540; 83550; 83735; 85027; 97035-GP; 97110-GP; 97116-GP; 97163-GP; 97165-GO; 97530-GP; 97535-GO; A9270-GY; J1650

== ENCOUNTER 2021-08-24 10:40 | Emergency (ER) | payer MEDICARE, OTHER ==
[2021-08-24] MEDS ORDERED: Lidocaine 1% 30 ML SDV INJECT ONE (11:17)
--- NOTE | 2021-08-24 13:28 | CT ---
[id number] CT/CT Head WO IV EXAM: CT Head WO IV CLINICAL DATA: FALL, STRUCK HEAD. COMPARISON STUDY: None FINDINGS: No intracranial hemorrhage, extra-axial fluid collection, mass, or acute ischemia. Generalized parenchymal atrophy with scattered areas of nonspecific white matter disease, commonly seen as sequela of chronic microvascular ischemia. Left frontal scalp hematoma without underlying calvarial fracture. Paranasal sinuses and mastoid air cells are clear. Old bilateral nasal bone fractures. IMPRESSION: No acute intracranial findings. El Cochran DO 08/24/21 [id number] Thank you for allowing us to participate in the care of your patient.
--- NOTE | 2021-08-24 13:31 | CR ---
[id number] RAD/RAD Hand Left 3V EXAM: 3 VIEWS LEFT HAND. INDICATION: FALL, STRUCK HAND. COMPARISON: None. DISCUSSION: No fracture, dislocation or other acute osseous abnormality. Punctate metallic hyperdensity overlying the superficial soft tissues of the hypothenar eminence. Moderate degenerative changes seen throughout the left hand most pronounced at the first carpometacarpal joint. IMPRESSION: 1. No definite acute osseous abnormalities. 2. Punctate metallic foreign body overlying the hypothenar eminence. El Cochran DO 08/24/21 2013 Thank you for allowing us to participate in the care of your patient.
--- NOTE | 2021-08-24 23:18 | EDM.PDOC ---
ED HPI GENERAL MEDICAL PROBLEM - General Chief Complaint: Laceration Stated Complaint: FELL HIT HEAD/ABRASION TO FOREHEAD/NOSE Time Seen by Provider: 08/24/21 10:48 Source of Information: Reports: Patient History Limitations: Reports: No Limitations - History of Present Illness INITIAL COMMENTS - FREE TEXT/NARRATIVE: Pt. presents to ER with significant lacerations to face post fall. Pt. states that he was walking and tripped, falling forward and hitting face on concrete. It was a mechanical fall. He states that he did not have any LOC during the event and remembers the entire event. Pt. denies any headache. He states that he thinks his tetanus is up to date (2017). Pt. denied any chest pain, shortness of breath, lightheadedness, palpitations, or other symptoms prior to the fall. He complains of some discomfort to the palm of his hand consistent with trying to catch himself when he fall. Onset: Today Location: Reports: Head, Face Quality: Reports: Ache, Sharp, Stabbing, Throbbing Left Hand Pain Score (Numeric/FACES): 3 - Related Data Allergies Allergy/AdvReac Type Severity Reaction Status Date / Time No Known Allergies Allergy Verified 08/24/21 11:12 Home Meds: Home Meds Lisinopril 10 mg PO DAILY 02/15/19 [History] Multivitamin with Minerals [Multiple Vitamin] 1 tab PO DAILY@1900 02/15/19 [History] atorvaSTATin [Lipitor] 20 mg PO BEDTIME 02/15/19 [History] Acetaminophen 1,000 mg PO TID 11/27/20 [History] Docusate Sodium 100 mg PO BID 11/27/20 [History] Lidocaine 5% [Lidoderm 5%] 2 patch TOP DAILY 11/27/20 [History] Melatonin 6 mg PO BEDTIME PRN 11/27/20 [History] polyethylene glycoL 3350 [MiraLAX] 17 gram PO DAILY 11/27/20 [History] tiZANidine [Zanaflex] 2 mg PO DAILY 11/27/20 [History] Gabapentin [Neurontin] 100 mg PO BID cap 12/14/20 [Rx] Past Medical History HEENT History: Reports: Other (See Below) Other HEENT History: hearing loss Cardiovascular History: Reports: High Cholesterol, Hypertension Respiratory History: Reports: None Gastrointestinal History: Reports: None Genitourinary History: Reports: None Musculoskeletal History: Reports: Fracture, Other (See Below) Other Musculoskeletal History: Multiple trauma, left hip fx, pelvic fx, right ankle fx, impaired gait and mobility, impaired ADLs, pain Neurological History: Reports: None Psychiatric History: Reports: None Endocrine/Metabolic History: Reports: None Hematologic History: Reports: None Oncologic (Cancer) History: Reports: None Dermatologic History: Reports: None - Past Surgical History Head Surgeries/Procedures: Reports: None HEENT Surgical History: Reports: None Cardiovascular Surgical History: Reports: None Respiratory Surgical History: Reports: None GI Surgical History: Reports: None Male Surgical History: Reports: None Endocrine Surgical History: Reports: None Neurological Surgical History: Reports: None Musculoskeletal Surgical History: Reports: ORIF Oncologic Surgical History: Reports: None Dermatological Surgical History: Reports: None, Skin Biopsy Social & Family History - Tobacco Use Tobacco Use Status *Q: Unknown Ever Used Tobacco ED ROS GENERAL - Review of Systems Review Of Systems: Comprehensive ROS is negative, except as noted in HPI. ED EXAM, SKIN/RASH Exam: See Below Exam Limited By: No Limitations General Appearance: Alert, WD/WN, No Apparent Distress Eye Exam: Bilateral Eye: EOMI, PERRL Nose: Normal Mucosa, Nasal Tenderness, Other (2 cm laceration to bridge of nose.) Throat/Mouth: Normal Inspection, Normal Lips, Normal Teeth, Normal Oropharynx, No Airway Compromise Head: Other (4 cm and 2 cm laceration noted to L forhead with significant underlying abrasion/hematoma.) Neck: Normal Inspection, Supple, Non-Tender, Full Range of Motion Respiratory/Chest: No Respiratory Distress, Lungs Clear, Normal Breath Sounds, No Accessory Muscle Use, Chest Non-Tender Cardiovascular: Normal Peripheral Pulses, Regular Rate, Rhythm, No Edema, No JVD Peripheral Pulses: 4+: Radial (L) GI/Abdominal: Non-Tender, No Distention, No Mass (Male) Exam: Deferred Rectal (Males) Exam: Deferred Back Exam: Normal Inspection, Full Range of Motion Extremities: No Pedal Edema, Other (Pain to palm of hand. No crepitus. No deformity. CMS intact.) Neurological: Alert, Oriented, CN II-XII Intact, Normal Cognition, Normal Reflexes, No Motor/Sensory Deficits Psychiatric: Normal Affect, Normal Mood ED SKIN PROCEDURES - Laceration/Wound Repair Left Forehead Appearance: Subcutaneous, Stellate, Irregular, Mildly Contaminated Anesthetic Type: Local Local Anesthesia - Lidocaine (Xylocaine): 1% Plain Local Anesthetic Volume: 5cc Skin Prep: Chlorhexidine (Hibiciens), Saline Exploration/Debridement/Repair: Wound Explored, Wound Margins Revised, Multiple Flaps Aligned Closed with: Sutures Lac/Wound length In cm: 6 Suture Size: 5-0 Suture Type: Nylon # of Sutures: 6 Nose Appearance: Subcutaneous, Linear Anesthetic Type: Local Local Anesthesia - Lidocaine (Xylocaine): 1% Plain Local Anesthetic Volume: 3cc Skin Prep: Chlorhexidine (Hibiciens), Saline Exploration/Debridement/Repair: Wound Explored Closed with: Sutures Lac/Wound length In cm: 2 Suture Size: 5-0 # of Sutures: 3 Suture Type: Nylon Course - Vital Signs Last Recorded V/S: Last Vital Signs Temp 36.9 C 08/24/21 10:48 Pulse 65 08/24/21 10:48 Resp 18 08/24/21 10:48 BP 119/77 08/24/21 10:48 Pulse Ox 95 08/24/21 10:48 - Orders/Labs/Meds Meds: Medications Discontinued Medications Generic Name Dose Route Start Last Admin Trade Name Freq PRN Reason Stop Dose Admin Lidocaine HCl 30 ml 08/24/21 11:17 08/24/21 11:30 Lidocaine 1% 30 Ml Sdv INJECT 08/24/21 11:18 30 ml ONETIME ONE Administration - Radiology Interpretation Free Text/Narrative:: CT brain negative for acute pathology. Hand series obtained. No obvious fracture or dislocation noted. There is a metallic object overlying the R thenar eminence but skin is intact in this area. Pt. states that he think this is "healed in" from a previous injury. No evidence of foreign body. Departure - Departure Time of Disposition: 13:30 Disposition: Home, Self-Care 01 Clinical Impression: Closed head injury, Laceration - Discharge Information Instructions: Head Injury, Adult, Laceration Care, Adult Referrals: Gautam Zavala PA-C [Primary Care Provider] - Forms: ED Department Discharge Additional Instructions: Home to rest. Ice painful areas for 10-15 min every 1-2 hours Tylenol as needed for discomfort. Sutures out in clinic in 12 days. Return if not notice any redness, swelling, or discharge from the area. - Assessment/Plan Plan: Home to rest. Ice painful areas for 10-15 min every 1-2 hours Tylenol as needed for discomfort. Sutures out in clinic in 12 days. Return if not notice any redness, swelling, or discharge from the area.
== END 2021-08-24 13:42 | disposition home or self-care (01) ==
LOC: VM.ED 10:40
DX: S01.81XA Laceration without foreign body of other part of head, initial encounter (principal); S01.21XA Laceration without foreign body of nose, initial encounter; M79.642 Pain in left hand; E78.00 Pure hypercholesterolemia, unspecified; I10 Essential (primary) hypertension; Z79.899 Other long term (current) drug therapy; W01.198A Fall on same level from slipping, tripping and stumbling with subsequent striking against other object, initial encounter; Y93.01 Activity, walking, marching and hiking; Y92.480 Sidewalk as the place of occurrence of the external cause
CPT/HCPCS: 12015; 70450; 73130-LT; 99283; 99283-25

== ENCOUNTER 2022-08-07 10:28 | Day surgery (SDC) | payer MEDICARE, OTHER ==
[~2022-08-07 10:28] MED LIST changes: -Sodium Chloride 0.9% 10 ML Syringe FLUSH PRN
[2022-08-07] MEDS ORDERED: Propofol 200 MG/20 ML SDV ONE ×2 (11:11→12:42)
[2022-08-07] MEDS ORDERED: fentaNYL 100 MCG/2 ML SDV ONE (11:11)
== END 2022-08-07 14:30 | disposition home or self-care (01) ==
LOC: VM.SDS 10:28
PROVIDERS: ATTEND Family Medicine
DX: Z12.11 Encounter for screening for malignant neoplasm of colon (principal); D12.0 Benign neoplasm of cecum; K57.30 Diverticulosis of large intestine without perforation or abscess without bleeding; K64.9 Unspecified hemorrhoids; I10 Essential (primary) hypertension; M81.0 Age-related osteoporosis without current pathological fracture; E78.5 Hyperlipidemia, unspecified; Z79.899 Other long term (current) drug therapy; Z79.82 Long term (current) use of aspirin
CPT/HCPCS: 00812; 45385; 88305; J2704; J3010; J7120

== ENCOUNTER 2025-09-23 09:27 | Observation (INO) | payer MEDICARE, OTHER ==
[2025-09-23] MEDS ORDERED: Sodium Chloride 0.9% 10 ML Syringe FLUSH PRN (09:56)
[2025-09-23 10:14] LABS: BASOPHILS ABSOLUTE AUTO 0.0 x10^3/uL (0.0-0.2); BASOPHILS PERCENT AUTO 0.2 % (0.2-1.2); EOSINOPHILS ABSOLUTE AUTO 0.0 x10^3/uL (0.0-0.5); EOSINOPHILS PERCENT AUTO 0.3 % (0.0-4.0); IMMATURE GRAN ABSOLUTE AUTO 0.02 x10^3/uL (0.00-0.07); IMMATURE GRAN PERCENT AUTO 0.20 % (0.00-0.43); LYMPHOCYTES ABSOLUTE AUTO 0.8 x10^3/uL (1.0-4.8); LYMPHOCYTES PERCENT AUTO 6.6 % (25.0-50.0); MONOCYTES ABSOLUTE AUTO 0.6 x10^3/uL (0.0-0.8); MONOCYTES PERCENT AUTO 5.4 % (2.0-11.0); NEUTROPHILS ABSOLUTE AUTO 10.4 x10^3/uL (1.8-7.7); NEUTROPHILS PERCENT AUTO 87.3 % (50.0-80.0); PLATELET COUNT,PLT 165 x10^3/uL (130-400); RED BLOOD CELL COUNT 4.97 x10^6/uL (4.5-6.0); WHITE BLOOD CELL COUNT,WBC 11.9 x10^3/uL (4.0-10.0)
[2025-09-23 10:26] LABS: A/G RATIO 0.81; ALANINE AMINOTRANSFERASE,ALT 22.0 U/L (16-63); ASPARTATE AMNIOTRANSFERASE,AST 15.0 U/L (15-37); BILIRUBIN TOTAL 1.3 mg/dL (0.2-1.0); BLOOD UREA NITROGEN,BUN 16.0 mg/dL (7-18); CARBON DIOXIDE,CO2 27.0 mmol/L (21-32); CHLORIDE,CL 101.0 mmol/L (98-107); CREATININE 1.1 mg/dL (0.70-1.30); EST CRCL DRUG DOSING (CG) 59.91 mL/min; ESTIMATED GFR 70.0 mL/min (>=60); GLUCOSE RANDOM 100.0 mg/dL (70-99); POTASSIUM,K 3.9 mmol/L (3.5-5.1); PROTEIN TOTAL,TP 7.8 g/dL (6.4-8.2); SODIUM,NA 138.0 mmol/L (136-145)
[2025-09-23 11:21] LABS: APPEARANCE,URINE CLEAR (CLEAR); GLUCOSE,URINE NEGATIVE (NEGATIVE); OCCULT BLOOD,URINE NEGATIVE (NEGATIVE)
[2025-09-23 11:22] LABS: SQUAMOUS EPITHELIAL CELLS,UR NOT SEEN /HPF (NOT SEEN)
[2025-09-23] MEDS: Iopamidol 612 MG/ML 100 ML Bottle IVPUSH ONE (11:43)
[2025-09-23] MEDS ORDERED: Ondansetron 4 MG/2 ML SDV IV PRN (13:25)
[2025-09-23] MEDS ORDERED: Naloxone 0.4 MG/ML SDV IVPUSH PRN (13:36)
[2025-09-24 08:14] LABS: BASOPHILS ABSOLUTE AUTO 0.0 x10^3/uL (0.0-0.2); BASOPHILS PERCENT AUTO 0.1 % (0.2-1.2); EOSINOPHILS ABSOLUTE AUTO 0.1 x10^3/uL (0.0-0.5); EOSINOPHILS PERCENT AUTO 1.1 % (0.0-4.0); IMMATURE GRAN ABSOLUTE AUTO 0.02 x10^3/uL (0.00-0.07); IMMATURE GRAN PERCENT AUTO 0.30 % (0.00-0.43); LYMPHOCYTES ABSOLUTE AUTO 0.6 x10^3/uL (1.0-4.8); LYMPHOCYTES PERCENT AUTO 7.4 % (25.0-50.0); MONOCYTES ABSOLUTE AUTO 0.5 x10^3/uL (0.0-0.8); MONOCYTES PERCENT AUTO 5.7 % (2.0-11.0); NEUTROPHILS ABSOLUTE AUTO 6.7 x10^3/uL (1.8-7.7); NEUTROPHILS PERCENT AUTO 85.4 % (50.0-80.0); PLATELET COUNT,PLT 132 x10^3/uL (130-400); RED BLOOD CELL COUNT 4.05 x10^6/uL (4.5-6.0); WHITE BLOOD CELL COUNT,WBC 7.9 x10^3/uL (4.0-10.0)
[2025-09-24 08:34] LABS: BLOOD UREA NITROGEN,BUN 12.0 mg/dL (7-18); CARBON DIOXIDE,CO2 26.0 mmol/L (21-32); CHLORIDE,CL 105.0 mmol/L (98-107); CREATININE 1.1 mg/dL (0.70-1.30); EST CRCL DRUG DOSING (CG) 59.91 mL/min; GLUCOSE RANDOM 84.0 mg/dL (70-99); POTASSIUM,K 3.7 mmol/L (3.5-5.1); SODIUM,NA 138.0 mmol/L (136-145)
[2025-09-24 08:36] LABS: ESTIMATED GFR 70.0 mL/min (>=60)
[2025-09-24 08:58] LABS: A/G RATIO 0.72; ALANINE AMINOTRANSFERASE,ALT 16.0 U/L (16-63); ASPARTATE AMNIOTRANSFERASE,AST 13.0 U/L (15-37); BILIRUBIN TOTAL 1.2 mg/dL (0.2-1.0); PROTEIN TOTAL,TP 6.2 g/dL (6.4-8.2)
[2025-09-24] MEDS: Non-Formulary Medication 1 Each (Ergocalciferol (Vitamin D2) [Vitamin D2] 50 MCG Capsule) PO SCH (09:02)
[2025-09-24] MEDS: Take Home: Amoxicillin/Clavulanate K 875-125 MG Tab, 2 Tab Pack PO ONE (13:02)
[2025-09-24] MEDS: Take Home: Ondansetron 4 MG Tab.DIS, 5 Tab Pack PO ONE (13:02)
== END 2025-09-24 13:45 | disposition home or self-care (01) ==
LOC: VM.ED 09:27 → VM.MS 13:00
PROVIDERS: ADMIT Nurse Practitioner Family; ATTEND Nurse Practitioner Family
DX: K57.20 Diverticulitis of large intestine with perforation and abscess without bleeding (principal); E78.00 Pure hypercholesterolemia, unspecified; I10 Essential (primary) hypertension; Z79.82 Long term (current) use of aspirin; Z79.899 Other long term (current) drug therapy
CPT/HCPCS: 36415; 74177; 80053; 81001; 83690; 85025; 96361; 96365; 96366; 99284; 99285-25; A9270-GY; G0378; J2543; J7030; Q0162; Q9967